=== PATIENT | female | born 1990 | race American Indian/Alaskan Native ===

== ENCOUNTER 2018-05-11 14:28 | Emergency (ER) | payer MEDICAID, OTHER ==
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
[2018-05-11] MEDS ORDERED: Sodium Chloride 0.9% 10 ML Syringe FLUSH PRN (14:57)
[2018-05-11] MEDS ORDERED: Iopamidol 612 MG/ML 100 ML Bottle IVPUSH ONE (15:00)
[2018-05-11] MEDS ORDERED: Ketorolac 30 MG/ML SDV IVPUSH ONE (15:00)
[2018-05-11 15:35] LABS: ANION GAP 9.6; CHLORIDE,CL 104 mmol/L (101-111); SODIUM,NA 137 mmol/L (135-145)
== END 2018-05-11 17:22 | disposition home or self-care (01) ==
LOC: DL.ED 14:28
DX: S29.012A Strain of muscle and tendon of back wall of thorax, initial encounter (principal); M62.830 Muscle spasm of back; V47.6XXA Car passenger injured in collision with fixed or stationary object in traffic accident, initial encounter
CPT/HCPCS: 36415; 71260; 74177; 80053; 80305; 81001; 81025; 82150; 83690; 85025; 85610; 85730; 96374; 99284; G0480; J1885; J7050; Q9967